=== PATIENT | male | born 1970 | race American Indian/Alaskan Native ===

== ENCOUNTER 2018-06-02 22:25 | Emergency (ER) | payer OTHER ==
[2018-06-03] MEDS ORDERED: IBUPROFEN PO ONE (01:50)
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
[2018-06-03 03:23] VITALS: BP 130/74
== END 2018-06-03 03:24 | disposition home or self-care (01) ==
LOC: ED 22:25
DX: S46.912A Strain of unspecified muscle, fascia and tendon at shoulder and upper arm level, left arm, initial encounter (principal); S46.911A Strain of unspecified muscle, fascia and tendon at shoulder and upper arm level, right arm, initial encounter; V49.49XA Driver injured in collision with other motor vehicles in traffic accident, initial encounter; Y93.89 Activity, other specified; Y92.488 Other paved roadways as the place of occurrence of the external cause; Y99.8 Other external cause status
CPT/HCPCS: 99282